=== PATIENT | male | born 1985 | race Caucasian/White ===

== ENCOUNTER 2020-09-23 15:23 | Emergency (ER) | payer BC ==
[~2020-09-23] VITALS: Ht 185.4 cm; Wt 94.5 kg
[2020-09-23 15:28] VITALS: TEMP 97.8
[2020-09-23 16:09] LABS: PH 6 (5-8); SQUAMOUS EPITHELIAL None Seen /hpf; URINE APPEARANCE Clear; URINE BACTERIA None Seen /hpf; URINE BILIRUBIN Negative (NEGATIVE); URINE BLOOD Negative (NEGATIVE); URINE COLOR Straw; URINE GLUCOSE Negative (NEGATIVE); URINE KETONE Negative (NEGATIVE); URINE LEUKOCYTE ESTERASE Negative (NEGATIVE); URINE NITRATE Negative (NEGATIVE); URINE PROTEIN(semi-quant) Negative (NEGATIVE); URINE RBC None Seen /hpf; URINE UROBILINOGEN Negative (NEGATIVE); URINE WBC None Seen /hpf
[2020-09-23 16:21] LABS: COLLECTION METHOD CLEAN CATCH
[2020-09-23] MEDS ORDERED: DOXYCYCLINE 10100 MG PO (16:49)
[2020-09-23 17:36] VITALS: BP 148/107; PULSE 85
== END 2020-09-23 17:36 | disposition home or self-care (01) ==
LOC: COL.ER 15:23
PROVIDERS: Emergency Medicine
DX: N50.811 Right testicular pain (principal); F17.200 Nicotine dependence, unspecified, uncomplicated
CPT/HCPCS: J0696; J1885

== ENCOUNTER → 2020-09-25 | Outpatient (CLI) | payer BC ==
[~2020-09-25] MED LIST: DOXYCYCLINE 10100 MG PO
== END ==
LOC: COL.RAD 14:23
DX: N50.811 Right testicular pain (principal)

== ENCOUNTER → 2020-12-13 | Outpatient (CLI) | payer BC | LOC: COL.RAD 07:18 | DX: D35.02 Benign neoplasm of left adrenal gland (principal); K76.0 Fatty (change of) liver, not elsewhere classified ==